=== PATIENT | male | born 1935 | race Caucasian/White ===

== ENCOUNTER 2017-12-16 08:08 | Outpatient (CLI) | payer MEDICARE, MEDICAID ==
[2017-12-16] MEDS ORDERED: REGADENOSON 0.4 MG/5 ML DISP.SYRIN IVP ONE (09:00)
== END 2017-12-16 23:59 | disposition home or self-care (01) ==
LOC: NM 08:08
PROVIDERS: ATTEND Internal Medicine Interventional Cardiology
DX: I25.10 Atherosclerotic heart disease of native coronary artery without angina pectoris (principal)
CPT/HCPCS: 78452; A9502; J2785

== ENCOUNTER 2017-12-21 09:08 | Outpatient (CLI) | payer MEDICARE, MEDICAID ==
[2017-12-21] MEDS ORDERED: IV NS 0.9% 250 ML IV ONE (09:48)
[2017-12-21] MEDS ORDERED: IOHEXOL-350 100 ML VIAL IV ONE (09:48)
[2017-12-21] MEDS ORDERED: CT SWABBABLE VALVE TRANS SET 1 EA INFUS.SET MC ONE (09:48)
[2017-12-21 09:55] LABS: CALCIUM, SERUM 8.4 mg/dL (8.5-10.1); CARBON DIOXIDE 31 mmol/L (21-32); CHLORIDE 110 mmol/L (98-107); CREATININE 1.1 mg/dL (0.6-1.3); GLUCOSE 95 mg/dL (74-106); POTASSIUM 4.7 mmol/L (3.5-5.1); SODIUM SERUM 147 mmol/L (136-145); UREA NITROGEN, BLOOD 21 mg/dL (7-18)
== END 2017-12-21 23:59 | disposition home or self-care (01) ==
LOC: CT 09:08
PROVIDERS: ATTEND Internal Medicine Interventional Cardiology
DX: I25.10 Atherosclerotic heart disease of native coronary artery without angina pectoris (principal); I25.9 Chronic ischemic heart disease, unspecified; J98.4 Other disorders of lung
CPT/HCPCS: 36415; 75574; 80048; J7050; Q9967; Z7610

== ENCOUNTER 2019-08-16 07:56 | Outpatient (CLI) | payer MEDICARE, MEDICAID | END 2019-08-16 23:59 | disposition home or self-care (01) | LOC: RAD 07:56 | PROVIDERS: ATTEND Internal Medicine Interventional Cardiology | DX: R91.8 Other nonspecific abnormal finding of lung field (principal); I11.0 Hypertensive heart disease with heart failure; I50.9 Heart failure, unspecified | CPT/HCPCS: 71046 ==